=== PATIENT | female | born 2000 | race African-American/Black ===

== ENCOUNTER 2020-09-30 21:33 | Emergency (ER) | payer OTHER ==
[~2020-09-30] VITALS: Ht 165.1 cm; Wt 81.6 kg
[2020-09-30 21:44] VITALS: Ht 165.1 cm; Wt 81.6 kg
[2020-09-30 23:26] VITALS: BP 119/83
== END 2020-09-30 23:26 | disposition home or self-care (01) ==
LOC: ED 21:33
DX: S43.004A Unspecified dislocation of right shoulder joint, initial encounter (principal); X58.XXXA Exposure to other specified factors, initial encounter; Y93.89 Activity, other specified; Y92.89 Other specified places as the place of occurrence of the external cause; Y99.8 Other external cause status
CPT/HCPCS: J1885; J3010